=== PATIENT | female | born 1960 | race Caucasian/White ===

== ENCOUNTER → 2017-09-27 | Outpatient (CLI) | payer OTHER ==
[~2017-09-27] MED LIST: DEXL60CA2 PO; ESTR0.5T PO
== END ==
LOC: STAR 07:54
PROVIDERS: ATTEND Orthopaedic Surgery
DX: Z02.9 Encounter for administrative examinations, unspecified (principal)

== ENCOUNTER 2017-10-04 09:40 | Day surgery (SDC) | payer OTHER ==
[2017-09-27 08:37] VITALS: BP 115/76
[~2017-10-04] VITALS: Ht 157.5 cm; Wt 62.0 kg
[~2017-10-04 09:40] MED LIST changes: +BUPIVACAINE/PF 0.5% ONE; +EPINEPHRINE 1 MG/ML, 1ML ONE; +LIDOCAINE/PF 1%, 30ML ONE
[2017-10-04] MEDS ORDERED: ONDANSETRON ODT 8 MG PO ONE (10:00)
[2017-10-04] MEDS ORDERED: GABAPENTIN 300 MG CAPSULE PO ONE (10:00)
[2017-10-04] MEDS ORDERED: SCOPOLAMINE PATCH, 1.5MG PATCH.TD72 TD ONE (10:00)
[2017-10-04] MEDS ORDERED: ACETAMINOPHEN 500 MG TABLET PO ONE (10:00)
[2017-10-04] MEDS ORDERED: LACTATED RINGERS 1,000 ML IV SCH (11:00)
[2017-10-04] MEDS ORDERED: MIDAZOLAM 1 MG/ML, 2ML ONE (11:07)
[2017-10-04] MEDS ORDERED: FENTANYL PF 100 MCG/2ML ONE ×2 (11:07→12:38)
[2017-10-04] MEDS ORDERED: PROPOFOL 50 ML ONE (11:36)
[2017-10-04] MEDS ORDERED: EPHEDRINE 50 MG/ML, 1ML ONE (11:45)
[2017-10-04] MEDS ORDERED: ONDANSETRON 2MG/ML, 2ML ONE (11:50)
[2017-10-04] MEDS ORDERED: KETOROLAC 30 MG/1 ML ONE (11:50)
[2017-10-04] MEDS ORDERED: DEXAMETHASONE 4 MG/ML, 1ML ONE (11:50)
[2017-10-04] MEDS ORDERED: PROPOFOL 10 MG/ML, 20ML ONE (11:50)
[2017-10-04] MEDS ORDERED: CEFAZOLIN 1,000 MG ONE (11:50)
[2017-10-04] MEDS ORDERED: MORPHINE SULFATE 4 MG/ML, 1ML IVPush PRN (12:00)
[2017-10-04] MEDS ORDERED: LABETALOL 5MG/ML, 20ML IV PRN (12:00)
[2017-10-04] MEDS ORDERED: PROMETHAZINE 25 MG SUPP PR PRN (12:00)
[2017-10-04] MEDS ORDERED: ALBUTEROL/IPRATROPIUM 2.5MG/0.5MG, 3 ML NPPB PRN (12:00)
[2017-10-04] MEDS ORDERED: OXYcodone 5 MG/5 ML ORAL.SOL UDC PO PRN (12:00)
[2017-10-04] MEDS ORDERED: HYDROmorphone 1 MG/ML, 1ML IV PRN (12:00)
[2017-10-04] MEDS ORDERED: MIDAZOLAM 1 MG/ML, 2ML IV PRN (12:00)
[2017-10-04] MEDS ORDERED: DIPHENHYDRAMINE 50 MG/ML, 1ML IVPush PRN (12:00)
[2017-10-04] MEDS ORDERED: MEPERIDINE/PF 25MG/0.5ML IVPush PRN (12:00)
[2017-10-04] MEDS ORDERED: PROMETHAZINE 25 MG/ML, 1ML IV PRN (12:00)
[2017-10-04] MEDS ORDERED: EPHEDRINE 50 MG/ML, 1ML IM PRN (12:00)
[2017-10-04] MEDS ORDERED: METOCLOPRAMIDE 5 MG/ML, 2ML ONE (12:14)
[2017-10-04] MEDS ORDERED: BUPIVACAINE/PF 0.5% INFIL ONE (12:22)
[2017-10-04] MEDS ORDERED: EPINEPHRINE 1 MG/ML, 1ML INFIL ONE (12:23)
[2017-10-04] MEDS ORDERED: LIDOCAINE 1%, 20ML INFIL ONE (12:28)
[2017-10-04] MEDS: FENTANYL PF 100 MCG/2ML IV PRN ×2 (12:39→12:50)
[2017-10-04] MEDS ORDERED: OXYcodone 5 MG/5 ML ORAL.SOL UDC ONE (12:40)
[2017-10-04] MEDS ORDERED: HYDROmorphone 2 MG/ML, 1ML ONE (12:51)
[2017-10-05] MEDS ORDERED: PANTOPROZOLE 40MG TABLET PO SCH (09:00)
[2017-10-05] MEDS ORDERED: ESTRADIOL 0.5 MG TABLET PO SCH (09:00)
== END 2017-10-04 15:05 ==
LOC: OR 09:40
PROVIDERS: ATTEND Orthopaedic Surgery
DX: S83.511A Sprain of anterior cruciate ligament of right knee, initial encounter (principal); M22.41 Chondromalacia patellae, right knee; M65.861 Other synovitis and tenosynovitis, right lower leg; X58.XXXA Exposure to other specified factors, initial encounter; Y93.89 Activity, other specified; Y92.89 Other specified places as the place of occurrence of the external cause; Y99.8 Other external cause status; Z86.14 Personal history of Methicillin resistant Staphylococcus aureus infection
CPT/HCPCS: 29888; 64447; C1713; C1762; J0171; J0690; J1100; J1170; J1885; J2250; J2405; J2704; J2765; J3010; J3490; J7120; Q0162